=== PATIENT | male | born 1960 | race Caucasian/White ===

== ENCOUNTER 2016-07-25 22:11 | Observation (INO) | payer MEDICARE, OTHER ==
--- NOTE | ~2016-07-25 | CN ---
Consultation Report [facility] [address] [place]. [address] NAME: ARABELLA LOPEZ JR : 58 STATUS : ADM Jose Guadalupe PAT#: [id number] AGE: 55 ADM/REG DATE : 07/26/16 MR#: [id number] REPORT SERV DATE: 07/26/16 DICTATED BY: BRANDAN PALUMBO DATE: 07/26/16 REPORT STATUS : Draft TRANSCRIBED BY: MODL DATE: 07/26/16 ELECTROPHYSIOLOGY CONSULTATION DATE OF CONSULTATION: INDICATIONS: Dislodgement of ICD lead. HISTORY OF PRESENT ILLNESS: Mr. Arabella Lopez is a 55-year-old man with a history of ischemic cardiomyopathy, who presented to the emergency room last night secondary to ICD shock x3. That began approximately 8 p.m. yesterday, but somewhat dizzy before and after the shock. No associated chest pain or shortness of breath. No syncope or diaphoresis. He was brought to the emergency room. He was found to have inappropriate ICD discharge secondary to dislodgement of his RV lead. This was noted on chest x-ray as well. His ICD was deactivated and the patient admitted for overnight observation. Currently, he is comfortable in no acute distress. PAST MEDICAL HISTORY: Coronary artery disease, ischemic cardiomyopathy status post ICD, hypertension, hyperlipidemia, REGAN, chronic systolic heart failure, COPD, history of a right upper extremity DVT, grand mal seizure 2010, TIA 2010, reflux disease, hiatal hernia, Ybarra's esophagus, anxiety, depression. FAMILY HISTORY: Notable for premature CAD. SOCIAL HISTORY: . Two children. Long smoking history, but quit about 8 months ago. No alcohol. REVIEW OF SYSTEMS: As per the HPI. Otherwise, all review of systems negative. PHYSICAL EXAMINATION: VITAL SIGNS: Blood pressure 149/93, pulse 68, respiratory rate 14, temperature 97.8. GENERAL: Appears stated age, no distress. EYES: Sclerae anicteric, no arcus senilis. MOUTH: Oral mucosa moist, lips acyanotic. NECK: Jugular venous pressure normal, no carotid bruits. LUNGS: Clear to auscultation bilaterally, normal inspiratory effort. CARDIAC: Regular rate and rhythm, no murmurs, gallops or rubs. ABDOMEN: Soft, nondistended, nontender. EXTREMITIES: No edema. SKIN: Warm and dry. NEURO/PSYCH: Alert and oriented, nonfocal, mood appropriate. Left infraclavicular ICD site well healed. Consultation Report [place] [id number] [place]. [address] NAME: ARABELLA LOPEZ JR : 58 STATUS : ADM Jose Guadalupe PAT#: [id number] AGE: 55 ADM/REG DATE : 07/26/16 MR#: [id number] REPORT SERV DATE: 07/26/16 DICTATED BY: BRANDAN PALUMBO DATE: 07/26/16 REPORT STATUS : Draft TRANSCRIBED BY: ABHINAV DATE: 07/26/16 DATA: Sodium 136, potassium is 3.7, creatinine is 0.79, troponin 0.8 x 2. BNP 278, hemoglobin 16.4. Chest x-ray shows cardiomegaly and mild vascular prominence. Echo from November 2015, shows an ejection fraction 20% with wall motion abnormalities. Telemetry is sinus rhythm. ECG from last evening is sinus rhythm with anterior septal infarct pattern and lateral ST-T changes. IMPRESSION: 1. Dislodgement of ICD lead. 2. Ischemic cardiomyopathy. 3. Chronic obstructive pulmonary disease and history of smoking. 4. Anticoagulation with warfarin. INR last night 1.5. RECOMMENDATIONS: Discussed situation with the patient. I discussed with him revision of ICD system. He voices full understanding, and I discussed some similar risk with previous such as bleeding, infection, discomfort, pneumothorax. All questions were answered and the patient wished to proceed, and we will pend clinical lab schedule today. He voices understanding of this as well. Otherwise medications listed in [facility] medicine form and reviewed. ALLERGIES: ALLERGY TO NIACIN, FELDENE, AND TRAMADOL. LOLI/ABHINAV Brandan Palumbo M.D. / [id number] CC: Addi Cobian II, M.D.
--- NOTE | ~2016-07-25 | HP ---
History And Physical [place] [id number] [facility] [place]. [address] NAME: ARABELLA LOPEZ JR : 58 STATUS : ADM Jose Guadalupe PAT#: [id number] AGE: 55 ADM/REG DATE : 07/26/16 MR#: [id number] REPORT SERV DATE: 07/26/16 DICTATED BY: REUBEN DALEY DATE: 07/26/16 REPORT STATUS : Draft TRANSCRIBED BY: MODL DATE: 07/26/16 DATE OF ADMISSION: 07/26/2016 Mr. Arabella Lopez is a 55-year-old male, who enters with AICD discharge. CVD PHYSICIAN: Reuben Daley M.D. TRIALS MANAGER: Jacky Saba M.D. HISTORY OF PRESENT ILLNESS: Mr. Arabella Lopez has known coronary artery disease and ischemic cardiomyopathy with ejection fraction of 20%. He had an AICD placed. On Tuesday, he had three discharges from this fibrillator. He came to the emergency room and on interrogation of defibrillator leads had been displaced. He is now admitted for a new AICD. REVIEW OF SYSTEMS: Negative for chest pain, chest discomfort, palpitations, syncope, presyncope, PND, MARTINEZ, lower extremity edema. Rest is negative. PAST MEDICAL HISTORY: 1. Ischemic cardiomyopathy with ejection fraction of 20%. 2. History of DVT in the right shoulder and left ventricular dysfunction, on Coumadin. 3. Coronary artery disease, status post myocardial infarction in 1993 with PTCA to the mid LAD with most recent stress test showing no evidence of reversible ischemia. 4. Hypertension, longstanding. 5. Hyperlipidemia. 6. Obstructive sleep apnea, on CPAP. 7. History of TIA in 2010 residual. SOCIAL HISTORY: He is , with good family support. He has been smoking up until recently. He does not drink. FAMILY HISTORY: Negative for early heart disease. PHYSICAL EXAMINATION: VITAL SIGNS: Blood pressure is 136/83, pulse is 68. He is afebrile. GENERAL: Resting comfortably, nutritional status appears adequate. EYES: PERRLA. LUNGS: No labored use of accessory muscles. Without rales or wheezes. COR: PMI is not displaced. No thrills or heaves. Normal S1 and S2. No S3, murmur, click or rub. PULSES: Carotids without bruits. ABD: Positive BS, nontender. EXT: No cyanosis, clubbing or edema. SKIN: No petechiae. NEURO: Alert and oriented. Does not appear anxious or depressed. History And Physical [address] [place]. [address] NAME: ARABELLA LOPEZ JR : 58 STATUS : ADM Jose Guadalupe PAT#: [id number] AGE: 55 ADM/REG DATE : 07/26/16 MR#: [id number] REPORT SERV DATE: 07/26/16 DICTATED BY: REUBEN DALEY DATE: 07/26/16 REPORT STATUS : Draft TRANSCRIBED BY: ABHINAV DATE: 07/26/16 LABORATORY EVALUATION: INR is 1.5. Troponin is 0.08. Renal function is normal at 0.8. Potassium of 3.7. ASSESSMENT: At this time, we will obtain consult from Dr. Palumbo who is on EP for revision of the AICD. Otherwise, we will continue on current medical therapy. EDWIGE/ABHINAV Reuben Daley M.D. / [id number] CC: Addi Cobian II, M.D.
[2016-07-25 20:53] LABS: BASOPHILS 0.3 %; BASOPHILS ABSOLUTE 0.03 10/3/uL (0.0-0.16); EOSINOPHILS 1.1 %; EOSINOPHILS ABSOLUTE 0.11 10/3/uL (0.0-0.53); ER CBC TAT 0 Hrs 07 Mins; HEMATOCRIT 47.8 % (40.0-51.0); HEMOGLOBIN 16.4 g/dL (13.6-17.8); IMMATURE GRANULOCYTES 0.2 %; IMMATURE GRANULOCYTES ABSOLUTE 0.02 10/3/uL (0.0-0.11); LYMPHOCYTES 26.1 %; LYMPHOCYTES ABSOLUTE 2.66 10/3/uL (0.67-4.30); MANUAL DIFF NO %; MEAN CORPUS HGB CONC 34.3 g/dL (32.0-36.0); MEAN CORPUSCULAR HEMOGLOB 32.5 pg (26.0-34.0); MEAN CORPUSCULAR VOLUME 94.8 fL (80-100); MEAN PLATELET VOLUME 10.7 fL (9.2-13.0); MONOCYTES 10.6 %; MONOCYTES ABSOLUTE 1.08 10/3/uL (0.21-1.20); NEUTROPHILS 61.7 %; NEUTROPHILS ABSOLUTE 6.29 10/3/uL (2.02-8.40); PLATELET COUNT 161 10/3/uL (150-400); RBC DISTRIBUTION WIDTH 13.5 % (12.0-16.0); RED CELL COUNT 5.04 10/6/uL (4.7-6.1); WHITE BLOOD CELLS 10.2 10/3/uL (4.5-10.5)
[2016-07-25 21:08] LABS: BUN (BLOOD UREA NITROGEN) 19 MG/DL (6-23); CALCIUM, SERUM 9.1 MG/DL (8.5-10.4); CO2 (CARBON DIOXIDE) 30 MMOL/L (24-34); CREATININE 0.79 MG/DL (0.70-1.30); GFR AFRICAN AMERICAN 116 ML/MIN (>=60); GFR NON AFRICAN AMERICAN 100 ML/MIN (>=60); GLUCOSE, SERUM 93 MG/DL (60-99); POTASSIUM, SERUM 3.7 MMOL/L (3.5-5.3)
[2016-07-25 21:11] LABS: CHEST PAIN PROFILE TAT 0 Hrs 25 Mins; CHLORIDE, SERUM 96 MMOL/L (96-112); SODIUM, SERUM 136 MMOL/L (135-148); TROPONIN I 0.08 NG/ML (<0.05)
[2016-07-25 21:43] LABS: INTERNATIONAL NORMAL RATI 1.5 UNITS (-)
[2016-07-25 21:44] LABS: PARTIAL THROMBO TIME 29.9 SEC (22.5-37.2); PROTIME (NOT ORD) 17.7 SEC (12.0-14.5)
[~2016-07-25 22:11] MED LIST: ADVAIR250 INH; ASA5GR PO; ASAB PO; B12100T PO; BENTYL20 PO; CALTRA600D PO; CO Q-10100 MG PO; COQ10100 MG OR; COREG12 PO; COUMADIN7.5 MG PO; CRESTOR20 MG PO; CYMBALTA60 PO; D100 PO; FISH-EPA1000 MG PO; JANTOVEN7.5 MG PO; K500 PO; L20 PO; LORT7 PO; MAGOX4 PO; MIDRIN PO; NITROSTAT0.4 MG SL; NORCO1 TA2 PO; PEPCID40 MG PO; PREV30 PO; PRIN10 PO; PROAIR HFA INH; SEPTRA DS1 TAB PO; SPIRIVA INH; SPIRO25 PO; SUPER B COMP PO; SYMBICORT 160/41 INH INH; TESS PO; ULTRAM ER200 MG PO; VITAMIN B-2100 MG PO; VYTORIN 10/20 T1 TAB PO; X5 PO; ZYRTEC ALLGY10 MG PO; ZYVOXPO PO
[2016-07-25] MEDS ORDERED: NORCO1 TA2 PO (22:50)
[2016-07-25] MEDS ORDERED: PRIN20 PO (22:51)
[2016-07-25] MEDS ORDERED: COREG12 PO (22:52)
[2016-07-25] MEDS ORDERED: MAGOX4 PO (22:52)
[2016-07-25] MEDS ORDERED: D100 PO (22:52)
[2016-07-25] MEDS ORDERED: SYMBICORT 160/41 INH INH (22:52)
[2016-07-25] MEDS ORDERED: METHOC500B PO (22:53)
[2016-07-25] MEDS ORDERED: TRIAMCINOLONE LOTION TOP (22:54)
[2016-07-25] MEDS ORDERED: COUMADIN7.5 MG PO (22:55)
[2016-07-25] MEDS ORDERED: TRIAMCINOLONE O80 GM TOP (22:56)
[2016-07-25] MEDS ORDERED: PEPCID40 MG PO (22:56)
[2016-07-25] MEDS ORDERED: CYMBALTA60 PO (22:57)
[2016-07-25] MEDS ORDERED: CRESTOR20 MG PO (22:57)
[2016-07-25] MEDS ORDERED: L20 PO (22:58)
[2016-07-25] MEDS ORDERED: BENTYL20 PO (22:59)
[2016-07-25] MEDS ORDERED: SPIRIVA INH (22:59)
[2016-07-25] MEDS ORDERED: SPIRO25 PO (23:00)
[2016-07-25] MEDS ORDERED: X5 PO (23:00)
[2016-07-25] MEDS ORDERED: ASAB PO (23:01)
[2016-07-25] MEDS ORDERED: SUPER B COMP PO (23:01)
[2016-07-25] MEDS ORDERED: CO Q-10 PO (23:02)
[2016-07-25] MEDS ORDERED: CALTRA600D PO (23:02)
[2016-07-25] MEDS ORDERED: VENTOLIN HFA INH (23:03)
[2016-07-25] MEDS ORDERED: NITROSTAT0.4 MG SL (23:04)
[2016-07-26 04:49] LABS: CPK 77 U/L (0-200)
[2016-07-26 04:50] LABS: CK-MB 1.5 NG/ML; TROPONIN I 0.08 NG/ML (<0.05)
[2016-07-27 04:05] LABS: BASOPHILS 0.4 %; BASOPHILS ABSOLUTE 0.03 10/3/uL (0.0-0.16); EOSINOPHILS 1.8 %; EOSINOPHILS ABSOLUTE 0.13 10/3/uL (0.0-0.53); HEMATOCRIT 45.6 % (40.0-51.0); HEMOGLOBIN 15.2 g/dL (13.6-17.8); IMMATURE GRANULOCYTES 0.3 %; IMMATURE GRANULOCYTES ABSOLUTE 0.02 10/3/uL (0.0-0.11); LYMPHOCYTES 26.3 %; LYMPHOCYTES ABSOLUTE 1.87 10/3/uL (0.67-4.30); MEAN CORPUS HGB CONC 33.3 g/dL (32.0-36.0); MEAN CORPUSCULAR HEMOGLOB 31.9 pg (26.0-34.0); MEAN CORPUSCULAR VOLUME 95.8 fL (80-100); MONOCYTES 11.1 %; MONOCYTES ABSOLUTE 0.79 10/3/uL (0.21-1.20); NEUTROPHILS 60.1 %; NEUTROPHILS ABSOLUTE 4.28 10/3/uL (2.02-8.40); PLATELET COUNT 132 10/3/uL (150-400); RBC DISTRIBUTION WIDTH 13.4 % (12.0-16.0); RED CELL COUNT 4.76 10/6/uL (4.7-6.1); WHITE BLOOD CELLS 7.1 10/3/uL (4.5-10.5)
[2016-07-27 04:06] LABS: MANUAL DIFF NO %
[2016-07-27 04:11] LABS: INTERNATIONAL NORMAL RATI 1.3 UNITS (-); PROTIME (NOT ORD) 15.9 SEC (12.0-14.5)
[2016-07-27 04:19] LABS: BUN (BLOOD UREA NITROGEN) 18 MG/DL (6-23); CALCIUM, SERUM 8.5 MG/DL (8.5-10.4); CHLORIDE, SERUM 104 MMOL/L (96-112); CO2 (CARBON DIOXIDE) 32 MMOL/L (24-34); CREATININE 0.69 MG/DL (0.70-1.30); GFR AFRICAN AMERICAN 123 ML/MIN (>=60); GFR NON AFRICAN AMERICAN 106 ML/MIN (>=60); SODIUM, SERUM 141 MMOL/L (135-148)
[2016-07-27 04:20] LABS: GLUCOSE, SERUM 127 MG/DL (60-99)
== END 2016-07-27 19:30 | disposition home or self-care (01) ==
LOC: ER 22:11 → CVICU 07-26 00:09 → SSU1 07-26 14:06
PROVIDERS: Emergency Medicine; Internal Medicine Clinical Cardiac Electrophysiology
DX: T82.190A Other mechanical complication of cardiac electrode, initial encounter (principal); I25.5 Ischemic cardiomyopathy; J44.9 Chronic obstructive pulmonary disease, unspecified; I25.10 Atherosclerotic heart disease of native coronary artery without angina pectoris; I50.22 Chronic systolic (congestive) heart failure; K44.9 Diaphragmatic hernia without obstruction or gangrene; F41.9 Anxiety disorder, unspecified; K21.9 Gastro-esophageal reflux disease without esophagitis; E78.00 Pure hypercholesterolemia, unspecified; F32.9 Major depressive disorder, single episode, unspecified; Z79.01 Long term (current) use of anticoagulants; Z86.73 Personal history of transient ischemic attack (TIA), and cerebral infarction without residual deficits; Z88.1 Allergy status to other antibiotic agents; Z88.8 Allergy status to other drugs, medicaments and biological substances
CPT/HCPCS: 33215; 71010; 71020; 80048; 82550; 82553; 82962; 83735; 83880; 84484; 85025; 85610; 85730; 87070; 87075; 87205; 93005; 93642; 94640; 99291; A9270-GY; G0378; J0690; J2250; J3010